=== PATIENT | male | born 1935 | race Two or more races ===

== ENCOUNTER 2017-12-26 09:34 | Emergency (ER) | payer MEDICARE, BC ==
[~2017-12-26] VITALS: Ht 167.6 cm; Wt 74.4 kg
[2017-12-26 09:39] VITALS: BP 134/87
== END 2017-12-26 10:31 | disposition home or self-care (01) ==
LOC: ER 09:36
DX: S40.011A Contusion of right shoulder, initial encounter (principal); I10 Essential (primary) hypertension; Z88.2 Allergy status to sulfonamides; W01.0XXA Fall on same level from slipping, tripping and stumbling without subsequent striking against object, initial encounter; Y93.89 Activity, other specified; Y92.89 Other specified places as the place of occurrence of the external cause; Y99.8 Other external cause status
CPT/HCPCS: 73030; 99284; A4606; Z7610